=== PATIENT | female | born 1970 ===

== ENCOUNTER → 2017-03-15 | Outpatient (CLI) | payer BC ==
[~2017-03-15] MED LIST: FRRS300 PO; MTR600X PO; OXYC-643 PO; PRENTAB26 PO
== END | disposition home or self-care (01) ==
LOC: C.PAPS 14:10
PROVIDERS: ATTEND Obstetrics & Gynecology
DX: Z01.419 Encounter for gynecological examination (general) (routine) without abnormal findings (principal)

== ENCOUNTER → 2017-03-20 | Outpatient (CLI) | payer BC ==
--- NOTE | 2017-03-21 14:18 | MAMMOGRAPHY REPORT ---
BILATERAL DIGITAL SCREENING MAMMOGRAM TOMOSYNTHESIS WITH CAD: 03/20/2017 CLINICAL HISTORY: Routine screening. Patient has no complaints. TECHNIQUE: Breast tomosynthesis in addition to standard 2D mammography was performed. Current study was also evaluated with a Computer Aided Detection (CAD) system. COMPARISON: Comparison is made to exam dated: 01/19/2015 mammogram - [facility]. BREAST COMPOSITION: The tissue of both breasts is heterogeneously dense, which may obscure small mas ses. FINDINGS: The parenchymal pattern is unchanged. No developing mass, architectural distortion or clus ter of suspicious microcalcifications is seen in either breast. IMPRESSION: ACR BI-RADS CATEGORY 2: BENIGN There is no mammographic evidence of malignancy. A 1 year screening mammogram is recommended. The pa tient will receive written notification of the results. Approximately 10% of breast cancers are not detected with mammography. A negative mammographic report should not delay biopsy if a clinically suggestive mass is present. Sarah Alexander M.D. ay/:03/20/2017 17:15:52 Behavioral Therapy Coordinator: Camila Malave, [facility] letter sent: Normal 1/2 BI-RADS Code: ACR BI-RADS Category 2: Benign
== END | disposition home or self-care (01) ==
LOC: C.MAMM 10:11
PROVIDERS: ATTEND Obstetrics & Gynecology
DX: Z12.31 Encounter for screening mammogram for malignant neoplasm of breast (principal)

== ENCOUNTER → 2017-07-11 | Outpatient (CLI) | payer OTHER ==
[~2017-07-11] MED LIST changes: +INSHNI INJ; +OXYC-57 PO
== END | disposition home or self-care (01) ==
LOC: C.LABSPEC 15:38
PROVIDERS: ATTEND Obstetrics & Gynecology
DX: O09.521 Supervision of elderly multigravida, first trimester (principal)

== ENCOUNTER → 2017-07-17 | Outpatient (CLI) | payer OTHER ==
[~2017-07-17] MED LIST changes: -INSHNI INJ; -OXYC-57 PO
== END | disposition home or self-care (01) ==
LOC: C.LABSPEC 13:52
PROVIDERS: ATTEND Obstetrics & Gynecology
DX: O09.521 Supervision of elderly multigravida, first trimester (principal); Z3A.00 Weeks of gestation of pregnancy not specified

== ENCOUNTER → 2018-01-24 | Outpatient (CLI) | payer OTHER | END | disposition home or self-care (01) | LOC: C.LABSPEC 13:41 | PROVIDERS: ATTEND Obstetrics & Gynecology | DX: O24.414 Gestational diabetes mellitus in pregnancy, insulin controlled (principal); Z3A.00 Weeks of gestation of pregnancy not specified ==

== ENCOUNTER → 2018-02-05 | Outpatient (CLI) | payer OTHER | END | disposition home or self-care (01) | LOC: C.PATHSPEC 11:19 | PROVIDERS: ATTEND Internal Medicine | DX: R22.0 Localized swelling, mass and lump, head (principal) ==

== ENCOUNTER 2018-02-21 05:38 | Inpatient (IN) | payer OTHER ==
--- NOTE | 2018-02-20 11:10 | PAT Medication Instructions ---
Service Date Feb 20, 2018. Current Home Medication List Ferrous Sulfate (Iron Supplement *), 325 MG PO DAILY Insulin Human NPH (Humulin N), 40 UNITS INJ HS Multivit/Min/Iron/Fol Ac/Pren ( Vitamin), 1 TAB PO DAILY Medication Instructions For Your Scheduled Surgery - Hold the following medications the morning of surgery: Ferrous Sulfate (Iron Supplement *), 325 MG PO DAILY Multivit/Min/Iron/Fol Ac/Pren ( Vitamin), 1 TAB PO DAILY - Take the following medications as scheduled the night before surgery: Insulin Human NPH (Humulin N), 40 UNITS INJ HS If you have any questions please call us at [phone] or [phone] or [phone]
[2018-02-20 11:50] LABS: BASO % 0.2 %; BASO ABS # 0.02 K/uL (0-0.2); EOS % 0.6 %; EOS ABS # 0.06 K/uL (0-0.5); HEMATOCRIT 33.7 % (37-47); HEMOGLOBIN 11.3 g/dL (12.0-16.0); IG# 0.05 K/uL (0.00-0.02); LYMPH % 23.8 %; MEAN CELL VOLUME 92.3 fL (80-100); MEAN CORPUSCULAR HGB CONC 33.5 g/dl (32-36); MEAN PLATELET VOLUME 10.9 fL (7.4-10.4); MONO % 6.1 %; MONO ABS # 0.59 K/uL (0.11-0.59); NEUT % 68.8 %; NEUT ABS # 6.66 K/uL (1.4-6.5); PLATELET COUNT 144 K/uL (130-400); RED CELL DISTRIBUTION WIDTH CV 14.7 % (11.5-14.5); RED CELL DISTRIBUTION WIDTH SD 49.7 fL (36.4-46.3); WHITE BLOOD COUNT 9.68 K/uL (4.8-10.8)
--- NOTE | 2018-02-20 21:31 | HISTORY & PHYSICAL EXAMINATION ---
DATE OF ADMISSION: 02/21/2018 CHIEF COMPLAINT: at 40 weeks who presents for repeat section. HISTORY OF PRESENT ILLNESS: Anny is a 47-year-old [place] female 5, para 2-0-2-2 with an EDC of 02/20/2018 based on a last menstrual period consistent with a first trimester ultrasound who presents for repeat section. The patient's history is significant for 2 prior deliveries. Her first delivery in 06/2010 was a vacuum-assisted vaginal delivery. This delivered a 7 pound 1 ounce baby, was complicated by diet-controlled gestational diabetes. Her second was delivered in 12/2012, this is a 39 and 6/7th weeks. This was a section to deliver a 9 pound 10 ounce baby. The baby was in transverse unstable lie. The patient had hoped for but unfortunately did not labor and now presents for repeat section. This was a welcome surprise . She has advanced maternal age, had a consult via [facility], had a normal amnio with a normal AFP. This has also been complicated by insulin controlled gestational diabetes. She has had growth ultrasounds every 4 weeks. The last ultrasound was done on 02/14/2018 revealing a fluid level of 11. Her last growth ultrasound was done on 01/24/2018 revealing an estimated weight greater than 98th percentile and AC greater than 98th percentile. The baby is in cephalic presentation. She has had twice weekly NSTs, which have been reactive. She declined a echo at [facility] for advanced maternal age. She has had an intermittent proteinuria throughout this and was diagnosed with gestational proteinuria with a 24 hour protein of 966. She has had intermittently elevated blood pressures, the highest being 170/80 at 19 weeks, but did not meet criteria for preeclampsia. Recent blood pressures have been in the one teens to 130s/80s, dipping trace protein. PAST COLLEGE INTERN HISTORY: As noted above. Additionally, she has had a spontaneous miscarriage in 07/1996 and a spontaneous miscarriage in 05/2015. This was a chemical . She has had a history of a LEEP in 2008 for BRIAN 2. She denies history of sexually transmitted illnesses. ALLERGIES: No known drug allergies. MEDICATIONS: Includes Humulin insulin, iron, and a vitamin. PAST MEDICAL HISTORY: Significant for previous gestational diabetes, but she is otherwise healthy without thyroid disease, asthma, heart disease, heart murmur, kidney or liver problems. SURGICAL HISTORY: Includes a LEEP in 2008, D and E, and . SOCIAL HISTORY: The patient denies tobacco, alcohol or drugs. Lives with her spouse and 2 children. FAMILY HISTORY: Noncontributory. PHYSICAL EXAMINATION: GENERAL: This is a well-developed, well-nourished female, in no acute distress. VITAL SIGNS: Blood pressure is 118/80, weight is 192.38 pounds. ABDOMEN: Soft, gravid, and nontender. EXTREMITIES: Showed trace edema but are otherwise benign. LABORATORY DATA: Blood type O positive, antibody negative, rubella immune, RPR nonreactive, hepatitis B negative, HIV negative, chlamydia and gonorrhea cultures negative. Hemoglobin electrophoresis normal. GBS negative. ASSESSMENT: Anny is a 5, para 2-0-0-2, at 40-1/7 weeks who presents for repeat section after failing to go into labor. The risks of the procedure were discussed with the patient including risks of anesthesia, bleeding requiring transfusion, infection, poor wound healing, damage to surrounding structures including bowel, bladder, vessels, nerves and ureters with need for further surgery, hospitalization or intervention. We discussed the risk of heart attack, blood clot, stroke or associated with any surgery. Consent was reviewed and signed and surgery is planned for 02/21/2018. KAMALJIT
[2018-02-21] VITALS (11 sets, daily range): BP systolic 121–154; BP diastolic 76–92; PULSE 73–82; TEMP 36.4–36.9; O2SAT 96–100; Ht 162.6 cm; Wt 83.7 kg
[~2018-02-21] VITALS: Ht 162.6 cm; Wt 83.7 kg
[~2018-02-21 05:38] MED LIST changes: +INSHNI INJ; -MTR600X PO; -OXYC-643 PO
[2018-02-21] MEDS ORDERED: LACTATED RINGER'S 1000ML 1,000 ML IV ONE (05:48)
[2018-02-21] MEDS ORDERED: CITRIC ACID/SODIUM CITRATE 15 ML UDC PO ONE (06:00)
[2018-02-21] MEDS ORDERED: CEFAZOLIN IV 2,000 MG in SYRINGE 0 ML IV STA (06:11)
[2018-02-21 06:18] LABS: BASO % 0.2 %; BASO ABS # 0.02 K/uL (0-0.2); EOS % 0.5 %; EOS ABS # 0.05 K/uL (0-0.5); HEMATOCRIT 31.6 % (37-47); HEMOGLOBIN 10.9 g/dL (12.0-16.0); IG# 0.07 K/uL (0.00-0.02); LYMPH % 23.7 %; MEAN CELL VOLUME 92.4 fL (80-100); MEAN CORPUSCULAR HEMOGLOBIN 31.9 pg (25-34); MEAN CORPUSCULAR HGB CONC 34.5 g/dl (32-36); MEAN PLATELET VOLUME 10.6 fL (7.4-10.4); MONO % 5.5 %; MONO ABS # 0.56 K/uL (0.11-0.59); NEUT % 69.4 %; NEUT ABS # 7.02 K/uL (1.4-6.5); PLATELET COUNT 138 K/uL (130-400); RED CELL DISTRIBUTION WIDTH CV 14.7 % (11.5-14.5); RED CELL DISTRIBUTION WIDTH SD 49.9 fL (36.4-46.3); WHITE BLOOD COUNT 10.12 K/uL (4.8-10.8)
[2018-02-21] MEDS ORDERED: MoRPHine SULFATE PF 1 MG/ML 10 ML AMP/VIAL ONE (07:05)
[2018-02-21] MEDS ORDERED: OXYTOCIN INJ 10 UNITS/ML VIAL ONE (07:05)
[2018-02-21] MEDS ORDERED: FENTANYL CITRATE INJ 50 MCG/1 ML 2 ML VIAL ONE (07:05)
[2018-02-21] MEDS ORDERED: EpHEDrine SULFATE INJ 50 MG/ML AMP IV PRN ×2 (07:15→09:00)
[2018-02-21] MEDS ORDERED: ONDANSETRON INJ 2 MG/ML 2 ML VIAL IV PRN ×2 (07:15→09:00)
[2018-02-21] MEDS ORDERED: ATROPINE SULFATE 0.1 MG/ML 5ML SYR IV PRN (07:15)
[2018-02-21] MEDS ORDERED: FENTANYL CITRATE INJ 50 MCG/1 ML 2 ML VIAL IV PRN (07:15)
[2018-02-21] MEDS ORDERED: PHENYLEPHRINE 100MCG/ML 5ML SYR ONE (07:48)
[2018-02-21] MEDS ORDERED: CARBOPROST TROMETHAMINE 250 MCG/ML AMP ONE (07:58)
[2018-02-21] MEDS ORDERED: CARBOPROST TROMETHAMINE 250 MCG/ML AMP IM ONE (08:16)
[2018-02-21] MEDS ORDERED: LACTATED RINGER'S 1000ML 500 ML IV PRN (08:49)
[2018-02-21] MEDS ORDERED: NALOXONE HCL INJ 0.08 MG in SYRINGE 1.8 ML IV PRN (08:49)
[2018-02-21] MEDS ORDERED: NALOXONE HCL INJ 1 MG in SODIUM CHLORIDE 0.9% 1000ML 1,000 ML IV PRN (08:49)
[2018-02-21] MEDS ORDERED: SODIUM CHLORIDE 0.9% 1000ML 1,000 ML IV PRN (08:49)
[2018-02-21] MEDS ORDERED: MoRPHine SULFATE PF 1 MG/ML 10 ML AMP/VIAL EPI PRN (09:00)
[2018-02-21] MEDS ORDERED: DC INTRASPINAL MORPHINE SCH (09:00)
[2018-02-21] MEDS ORDERED: MEPERIDINE HCL 25 MG/ML CARP IV PRN (09:00)
[2018-02-21] MEDS ORDERED: NO NARCOTICS OR SEDATIVES SCH (09:00)
[2018-02-21] MEDS ORDERED: NALOXONE HCL 0.4 MG/1 ML VIAL/CARP IV PRN (09:00)
[2018-02-21] MEDS ORDERED: DiphenhydrAMINE HCL 50 MG/ML VIAL IV PRN (09:00)
[2018-02-21] MEDS ORDERED: NALBUPHINE HCL INJ 10 MG/ML 1ML AMP IV PRN (09:00)
[2018-02-21] MEDS ORDERED: LACTATED RINGER'S 1000ML 1,000 ML IV SCH (09:46)
--- NOTE | 2018-02-21 09:46 | [facility] Post Operative Brief Note ---
Immediate Operative Summary Operative Date Feb 21, 2018. Pre-Operative Diagnosis Intrauterine at term, desires repeat caesarean section Post-Operative Diagnosis same Procedure(s) Performed low transverse uterine caesarean section delivery for live female at [address] Raven Beranbe Field Underwriter Surgeon(s) Dr. Martin Estimated Blood Loss 600 CC Findings Consistent with Post-Op Diagnosis Fluids (cc crystalloids) 2500CC Specimens placenta cord blood Drains MAGDALENO Anesthesia Type Spinal Complication(s) none Disposition Accompanied Pt To Recover: no Disposition: L&D
[2018-02-21] MEDS ORDERED: DC PCA PRN (10:00)
[2018-02-21] MEDS ORDERED: DIPHTHERIA/TETANUS/PERTUSSIS 0.5 ML SYR/VIAL IM. ONE (10:00)
[2018-02-21] MEDS ORDERED: LANOLIN OINT EXT PRN (10:00)
[2018-02-21] MEDS ORDERED: HYDROCORTISONE ACETATE 25 MG SUPP PR PRN (10:00)
[2018-02-21] MEDS: OXYTOCIN INJ 20 UNITS in LACTATED RINGER'S 1000ML 1,000 ML IV SCH ×2 (11:09→19:54)
--- NOTE | 2018-02-21 13:00 | Anesthesiology Progress Note ---
Anesthesia Post Op Note Date & Time Feb 21, 2018 at 13:00 Vital Signs Pain Intensity: 0.0 Vital Signs Past 12 Hours Date Time Temp Pulse Resp B/P (MAP) Pulse Ox O2 Delivery O2 Flow Rate FiO2 02/21/18 11:15 16 98 02/21/18 11:15 98 Room Air 02/21/18 11:15 36.4 79 16 137/89 (105) 98 Room Air 02/21/18 11:15 98 Room Air Notes Mental Status: alert / awake / arousable, participated in evaluation Pt Amnestic to Procedure: Yes Nausea / Vomiting: adequately controlled Pain: adequately controlled Airway Patency, RR, SpO2: stable & adequate BP & HR: stable & adequate Hydration State: stable & adequate Neuraxial Anesthesia: was administered, sensory block resolved Anesthetic Complications: no major complications apparent
--- NOTE | 2018-02-21 13:21 | Discharge Instructions ---
Discharge Instructions Date of Service Feb 21, 2018. Admission Reason for Admission: History Of Section Discharge Discharge Diagnosis / Problem: Discharge Goals Goal(s): Routine recovery after Medications Continue Dispensed Medications: supercream, dermaplast, tucks Activity Recommendations Activity Limitations: per Instructions/Follow-up section . Instructions / Follow-Up Instructions / Follow-Up ACTIVITY RECOMMENDATIONS: * Gradual return to full activity over the next 2-3 weeks. * No lifting - nothing heavier than baby over the next 2-3 weeks. * Do not engage in vigorous exercise, sexual activity or sports until cleared by your physician. * Do not drive or operate any motorized equipment until cleared by your physician. * You may shower/bathe daily. MEDICATIONS: For discomfort or pain, you may use Acetaminophen (Tylenol), Ibuprofen (Advil), or Naproxen (Aleve) following the package directions. For constipation you may use Colace following the package directions. BREAST CARE: If you are not breast feeding: * Wear a supportive bra 24 hours a day for one to two weeks. * Avoid stimulating your breasts and nipples as much as possible during the first few weeks after delivery. * When taking a shower, have the warm water hit your back, not breasts. * When your breasts feel full, apply ice packs. Usually three to four times a day helps ease the discomfort. * Take a mild pain medication (Tylenol / Motrin) when you are uncomfortable. If breast feeding: * Use breast milk to lubricate nipples. Lansinoh cream may be used for sore nipples. You do not need to remove cream prior to breast feeding. If using a different brand of cream, check the label for directions regarding removal of cream prior to nursing. * Wear a supportive bra. * If having problems with breasts or breast feeding, call a bmw sales consultant or your health care provider. SPECIAL CARE INSTRUCTIONS: When you are discharged from the hospital, it is important for you to follow the instructions listed below: * During the first week at home, you should be able to care for yourself and your baby. In addition, the usual light household activities are encouraged. * Limit your activities to the way you feel. Do not try to clean the house or move furniture. Be sensible. * If you actively engage in sports and have done so up until the time of your delivery, you may resume these activities as soon as you feel able. This may take up to one month or even longer. Use good judgment. * Continue to take your vitamins for at least six weeks after the of your baby. * Your diet need not be limited unless you were on a special diet before your delivery. Breast-feeding mothers need around 2500 calories per day and at least 64-80 ounces of fluid per day (8 to 10 glasses). * You should eat foods from the four major food groups. Crash diets or fad diets are to be avoided. Eating lean meats, fresh fruits and vegetables, low-fat dairy products, high fiber foods and a regular exercise program, will help you get back to your pre- weight without putting your health at risk. * Constipation is sometimes a problem after delivery. Take a mild laxative as needed. If breast feeding, Milk of Magnesia is acceptable to use. You may use a suppository or Fleets enema. * A daily shower or tub bath is suggested. Wash incision daily with warm soapy water and pat dry. It doesn't need to be covered unless drainage is present. * A bloody vaginal discharge will usually continue until around four weeks . A small amount of bleeding may continue for as long as six weeks. Vaginal discharge changes from the bright red bleeding after delivery to pink then brownish and finally yellowish-pink before becoming white and disappearing. * Bleeding may increase with activity. Your first period may come in 4-8 weeks. If you are breast feeding, your period may be delayed even longer. * Drake (sex) can begin whenever both you and your partner feel comfortable and do not have any form of genital infection. It is recommended that you wait at least six weeks for internal and external healing to occur. If you have questions, please talk to your health care practitioner. A condom should be used to prevent infection and . * Foreplay, gentle intercourse and lubrication is very important the first several times to prevent pain. A water-based lubricant such as K-Y jelly or Astroglide may be used. * If you have RH negative blood and your baby is RH positive, you will receive RHOGAM by injection prior to discharge. The nurse will give you a card to keep with you that has the date and place that you received RHOGAM after delivery. * During your care, you had a Rubella screen done to check for the presence of rubella antibodies in your blood. If your test was negative, you will receive a Rubella vaccine prior to discharge. This vaccine may cause a fever, soreness at the injection site and flu-like symptoms. If these symptoms persist, notify your health care practitioner. is not advised for one month after a Rubella vaccine. * Verbalizes understanding of car seat law as reviewed with patient nursing. * Car Seat hand-out given and reviewed with patient by nursing. * Shaken baby information reviewed with patient by nursing. Call you doctor if: * Heavy bleeding (saturating several pads an hour) or passing clots the size of your fist. * A fever >101 degrees F (38.3 degrees C) on two occasions four hours apart and /or chills. * Unusual pain in the pelvic or vaginal areas. * Call the doctor for any increased redness, drainage or swelling around the incision and any pain unrelieved by prescribed pain medication. * "Baby Blues" lasting longer than two weeks. If you have any questions or concerns, call your health care practitioner at . FOLLOW UP VISIT: * Please call the office at to schedule a 6 week examination. It is important you keep this appointment. It is important for you to make arrangements for either yearly or twice yearly check-ups thereafter. Current Hospital Diet Patient's current hospital diet: Clear Liquid Diet Discharge Diet Recommended Diet: Regular OB Diet Procedures Procedures Performed: low transverse uterine caesarean section delivery for live female infant at 0753 Pending Studies Studies pending at discharge: no Medical Emergencies . Who to Call and When: Medical Emergencies: If at any time you feel your situation is an emergency, please call 911 immediately. . Non-Emergent Contact Non-Emergency issues call your: Human Resources Operations Coordinator Call Non-Emergent contact if: temperature is above 100.5 . . "Provider Documentation" section prepared by Alec Zhou. . Resident Tracking Resident Involvement: Resident Care Provided Care Provided: Adult Hospital Medicine
--- NOTE | 2018-02-21 14:27 | OPERATIVE REPORT ---
DATE OF OPERATION: 02/21/2018 PREOPERATIVE DIAGNOSES: 1. Intrauterine at 40-1/7 weeks. 2. History of previous section. 3. Insulin requiring gestational diabetes. 4. Advanced maternal age. 5. Gestational proteinuria. POSTOPERATIVE DIAGNOSES: 1. Intrauterine at 40-1/7 weeks. 2. History of previous section. 3. Insulin requiring gestational diabetes. 4. Advanced maternal age. 5. Gestational proteinuria. PROCEDURE: Repeat lower transverse section. SURGEON: Raven Bernabe MD SUPERVISOR MOLD CONSTRUCTION: Vane Martin DO and Chuck Zhou, PGY-1. ANESTHESIA: Spinal. ESTIMATED BLOOD LOSS: 600 mL. FLUIDS: 2500 mL. URINE OUTPUT: 150 mL of clear yellow urine draining from the bladder at the end of the procedure. INDICATIONS: The patient is a 5, para 2-0-2-2 who has a history of a previous section for rather unstable lie in her previous delivery. She had hoped for a trial of labor, but had not labored and this is her default section date. Her was also complicated by likely poorly-controlled insulin requiring diabetes mellitus with her last ultrasound at 36 weeks revealing all parameters in the greater than 98th percentile. She has gestational proteinuria, but did not have signs and symptoms of preeclampsia and she was advanced maternal age with normal amnio female. FINDINGS: Viable female infant in cephalic presentation. There was thinly green-stained meconium on rupture of membranes. The uterus was enlarged but normal in appearance except for a small fibroid noted except grossly posteriorly. The tubes and ovaries were normal bilaterally. COMPLICATIONS: None. DRAINS: Franco. DISPOSITION: To recovery room in stable condition. DESCRIPTION OF PROCEDURE: The patient was taken to the operating room where she was identified verbally and by bracelet. She was seated on the operating table where spinal anesthetic was placed. She was then placed on the operating table in the supine position with a leftward tilt. A Franco catheter was placed sterilely and she was prepped and draped in normal sterile fashion. Anesthetic was tested and found to be adequate and then a timeout was held, identifying correct patient, procedure, positioning, and preoperative antibiotics. A Pfannenstiel skin incision was made over her previous incision and taken down to the underlying layer of fascia with the knife. Bleeding was attended to with Bovie electrocautery. The fascia was incised in the midline with the knife, taken out laterally with scissors. The superior edge of the fascial incision was grasped, elevated and the underlying layer of rectus muscle was taken off bluntly and with scissors. In a similar fashion, the inferior edge of the fascial incision was grasped, elevated and the underlying layer of rectus muscle was taken off bluntly and with scissors. The muscles were bluntly in the midline. The peritoneum was grasped with snaps x2 and entered sharply with scissors. The slotter operator helper's finger was placed into this incision and there were no adhesions noted, so the incision was taken superiorly and inferiorly with good visualization of the bladder sharply with scissors. The incision was stretched, the bladder blade was placed. The lower uterine segment was quite thin, but intact. A bladder flap was created by grasping the vesicouterine peritoneum with a snap entering with scissors and taken out laterally with scissors. The bladder flap was created digitally and the bladder blade was replaced. Hysterotomy incision was scored with the knife. On entering the amniotic sac, thin green meconium was noted. The incision was stretched then with the slotter operator helper's fingers. The head was then delivered atraumatically by placing an slotter operator helper's hand into the uterus and raising it through the incision. The nose and mouth were suctioned. There was no nuchal cord. The rest of the was then delivered without difficulty. The nose and mouth were again bulb suctioned. The cord was clamped and cut and the was taken over immediately to the pediatricians for drying and attention. Cord blood and segment were obtained. The placenta was manually extracted. There were some trailing membranes that were removed from the uterus with a ring forceps. The uterus was then exteriorized and cleared of clot and debris with moistened laparotomy sponges. The hysterotomy incision was repaired in 2 layers, the first in a running layer of 0 Vicryl, the second in an imbricating layer of 0 Vicryl. Some oozing was attended to with [id number] sutures of 0 Vicryl until hemostasis was assured. The posterior cul-de-sac was irrigated and cleared of clot and debris. The hysterotomy incision was again found to be inspected. Another [id number] suture was needed for hemostasis and hemostasis was assured. The uterus was then reanteriorized. The hysterotomy incision was again inspected and found to be hemostatic. The rectus muscles were reapproximated in the midline with several interrupted sutures of 0 Vicryl. The fascia was then reapproximated starting at the corners and meeting in the midline with 0 Vicryl. The subcuticular tissue was copiously irrigated, found to be hemostatic and the skin was closed with subcuticular stitch of 4-0 Vicryl. All sponge, lap, and needle counts were correct x2. The patient tolerated the procedure well and was taken to recovery room in stable condition. I attest to the content of the Intraoperative Record and any orders documented therein. Any exception s are noted below.
[2018-02-21] MEDS: KETOROLAC TROMETHAMINE 30 MG/ML VIAL IV. PRN ×2 (16:03→21:36)
[2018-02-21] MEDS: SIMETHICONE 80 MG CHEW PO SCH ×2 (17:33→19:54)
[2018-02-21] MEDS: DOCUSATE SODIUM 100 MG CAP PO SCH (19:54)
[2018-02-21] MEDS ORDERED: NURSING VERBAL MED ORDER ONE (21:45)
[2018-02-21] MEDS ORDERED: LACTATED RINGER'S 1000ML 500 ML IV ONE (22:15)
[2018-02-22 00:35] VITALS: O2SAT 98
[2018-02-22 01:20] VITALS: O2SAT 97
[2018-02-22] MEDS ORDERED: KETOROLAC TROMETHAMINE 30 MG/ML VIAL IV. PRN (01:30)
[2018-02-22] MEDS ORDERED: MEPERIDINE HCL 50 MG/ML CARP IV PRN ×2 (01:30)
[2018-02-22] MEDS ORDERED: DiphenhydrAMINE HCL 50 MG/ML VIAL IV PRN (01:30)
[2018-02-22 03:30] VITALS: BP 126/77; PULSE 73; TEMP 36.7; O2SAT 97
--- NOTE | 2018-02-22 06:45 | Progress Note ---
Subjective Feb 22, 2018. Subjective conversation w/ patient, physical exam Ambulation: ambulating normally Voiding: no voiding problems Passing Gas: Yes Diet Tolerance: Clear Liquids Lochia: Moderate (with coughing) Feeding Type: Breast Feeding Pain: 10/16 Comment: patient wanted to know if pain would intensify Review of Systems Constitutional: No fever, No chills, No sweats Respiratory: No cough, No sputum, No wheezing Cardiac: No chest pain, No palpitations Abdomen: No pain, No nausea, No vomiting, No diarrhea Female : No dysuria Objective Vital Signs Date Time Temp Pulse Resp B/P (MAP) Pulse Ox O2 Delivery O2 Flow Rate FiO2 02/22/18 03:30 36.7 73 18 126/77 (93) 97 Room Air 02/22/18 01:20 18 97 02/22/18 00:35 18 98 02/21/18 23:45 36.6 82 18 124/76 (92) 96 Room Air 02/21/18 23:45 18 96 02/21/18 23:45 96 Room Air 02/21/18 21:55 18 99 02/21/18 20:30 18 99 02/21/18 19:40 18 99 02/21/18 19:40 36.9 78 18 121/83 (96) 99 Room Air 02/21/18 18:40 16 98 02/21/18 17:00 18 99 02/21/18 15:55 36.8 76 18 154/92 (112) 99 Room Air 02/21/18 15:55 99 Room Air 02/21/18 15:55 18 99 02/21/18 14:08 73 16 129/81 (97) 98 Room Air 02/21/18 14:08 16 98 02/21/18 13:15 16 97 02/21/18 12:15 36.4 73 16 142/86 (104) 100 Room Air 02/21/18 12:15 16 100 02/21/18 11:15 16 98 02/21/18 11:15 98 Room Air 02/21/18 11:15 36.4 79 16 137/89 (105) 98 Room Air 02/21/18 11:15 98 Room Air Physical Exam General Appearance: WELL-APPEARING, NO APPARENT DISTRESS Respiratory/Chest: chest non-tender, normal breath sounds Cardiovascular: regular rate, rhythm Abdomen: normal bowel sounds Fundus: Firm, Relation to Umbilicus (at level of umbilicus) Extremities: non-tender, no calf tenderness Laboratory Results Last 24 Hours Test 02/21/18 06:59 02/22/18 06:00 Bedside Glucose 84 mg/dl Medications Current Inpatient Medications Medications (Trade) Dose Ordered Sig/Kirstin Route Start Time Stop Time Status Last Admin Dose Admin Oxytocin 20 units/ Lactated Ringer's 1,002 ml @ 125 mls/hr Q8H1M IV 02/21/18 09:46 03/23/18 09:45 02/21/18 19:54 125 MLS/HR Lactated Ringer's 1,000 ml @ 125 mls/hr Q8H IV 02/21/18 09:46 03/23/18 09:45 Ketorolac Tromethamine (Toradol Inj) 30 mg Q6H PRN IV. 02/22/18 01:30 02/27/18 01:29 02/22/18 03:41 30 MG Meperidine HCl (Demerol Inj) 50 mg Q4H PRN IV 02/22/18 01:30 03/08/18 01:29 Meperidine HCl (Demerol Inj) 75 mg Q4H PRN IV 02/22/18 01:30 03/08/18 01:29 Oxycodone/ Acetaminophen (Percocet 5-325mg Tab) 1 tab Q4H PRN PO 02/22/18 01:30 03/08/18 01:29 Oxycodone/ Acetaminophen (Percocet 5-325mg Tab) 2 tab Q4H PRN PO 02/22/18 01:30 03/08/18 01:29 Ibuprofen (Motrin Tab) 600 mg Q4H PRN PO 02/21/18 10:00 03/23/18 09:59 Prenat Multivit/ [place]/Iron/Folic Ac ( Vitamin Tab) 1 tab DAILY PO 02/22/18 08:00 03/24/18 07:59 Docusate Sodium (coLACE CAP) 100 mg BID PO 02/21/18 20:00 03/23/18 19:59 02/21/18 19:54 100 MG Lanolin (Lanolin Oint) PRN PRN EXT 02/21/18 10:00 03/23/18 09:59 Hydrocortisone Acetate (Anusol Hc Supp) 25 mg BID PRN OH 02/21/18 10:00 03/23/18 09:59 Simethicone (Mylicon Chew Tab) 80 mg QID PO 02/21/18 12:00 03/23/18 12:59 02/21/18 19:54 80 MG Diphenhydramine HCl (Benadryl Cap) 25 mg QID PRN PO 02/22/18 01:30 03/24/18 01:29 Diphenhydramine HCl (Benadryl Inj) 25 mg QID PRN IV 02/22/18 01:30 03/24/18 01:29 Assessment and Plan Post-Op Day#: 1 Continue Routine Care: 47 yo hx Insulin Controlled GDM POD1 s/p -AFVSS, Pt doing well resting comfortably -CBC HGB 11.0 from 10.9 pre-op, no si/sx of anemia -Plan is to breast feed -Now tolerating clear diet, no more n/v -had some N/V yesterday s/p has since resolved -advised that should she have further episodes to hug a pillow to her abdomen during anything that increase intraabdominal/intrathoracic pressure -Continue to encourage ambulation -Routine Post care Resident Physician Supervision Note: I interviewed and examined the patient. Discussed with Dr. Zhou and agree with findings and plan as documented in the note. Any exceptions or clarifications are listed here: Doing well. Routine care. Incision c/d/i. Fundus firm and appropriately tender. Documented By: Raven Bernabe Resident Tracking Resident Involvement: Resident Care Provided Care Provided: Adult Hospital Medicine
[2018-02-22 06:52] LABS: BASO % 0.2 %; BASO ABS # 0.02 K/uL (0-0.2); EOS % 0.2 %; EOS ABS # 0.03 K/uL (0-0.5); HEMATOCRIT 32.3 % (37-47); IG# 0.05 K/uL (0.00-0.02); LYMPH % 15.4 %; LYMPH ABS # 1.85 K/uL (1.2-3.4); MEAN CELL VOLUME 92.6 fL (80-100); MEAN CORPUSCULAR HEMOGLOBIN 31.5 pg (25-34); MEAN CORPUSCULAR HGB CONC 34.1 g/dl (32-36); MONO % 6.1 %; MONO ABS # 0.73 K/uL (0.11-0.59); NEUT % 77.7 %; NEUT ABS # 9.33 K/uL (1.4-6.5); PLATELET COUNT 136 K/uL (130-400); RED CELL DISTRIBUTION WIDTH CV 14.7 % (11.5-14.5); RED CELL DISTRIBUTION WIDTH SD 49.3 fL (36.4-46.3); WHITE BLOOD COUNT 12.01 K/uL (4.8-10.8)
[2018-02-22] MEDS: DOCUSATE SODIUM 100 MG CAP PO SCH ×2 (07:51→19:58)
[2018-02-22] MEDS: SIMETHICONE 80 MG CHEW PO SCH ×4 (07:51→19:58)
[2018-02-22] MEDS: PRENATAL VITAMIN TAB PO SCH (07:51)
[2018-02-22] MEDS: IBUPROFEN 600 MG TAB PO PRN ×3 (07:52→19:51)
[2018-02-22] MEDS: OXYCODONE/ACETAMINOPHEN 5-325 TAB PO PRN ×4 (07:52→19:52)
[2018-02-22 08:00] VITALS: BP 134/80; PULSE 83; TEMP 36.6; O2SAT 96
[2018-02-22 12:00] VITALS: BP 152/93; PULSE 80; TEMP 37.3; O2SAT 97
[2018-02-22 15:35] VITALS: BP 139/86; PULSE 71; TEMP 36.5; O2SAT 98
[2018-02-23] MEDS: IBUPROFEN 600 MG TAB PO PRN ×6 (00:08→21:42)
[2018-02-23] MEDS: OXYCODONE/ACETAMINOPHEN 5-325 TAB PO PRN ×6 (00:09→21:41)
[2018-02-23 00:25] VITALS: BP 150/89; PULSE 72; TEMP 36.6; O2SAT 98
[2018-02-23 06:39] LABS: HEMATOCRIT 32.6 % (37-47); HEMOGLOBIN 10.9 g/dL (12.0-16.0)
--- NOTE | 2018-02-23 07:31 | Progress Note ---
Subjective Feb 23, 2018. Subjective Voiding: no voiding problems Comment: conversation w/ patient, physical exam Ambulation: ambulating normally Voiding: no voiding problems Passing Gas: Yes Diet Tolerance: Clear Liquids Lochia: Moderate (with coughing) Feeding Type: Breast Feeding Pain: 4/10 Comment: patient had questions about umbilical hernia and reported sore rib cage Review of Systems Constitutional: No fever, No chills, No sweats Respiratory: No cough, No sputum, No wheezing Cardiac: No chest pain, No palpitations Abdomen: No pain, No nausea, No vomiting, No diarrhea Female : No dysuria Objective Vital Signs Date Time Temp Pulse Resp B/P (MAP) Pulse Ox O2 Delivery O2 Flow Rate FiO2 02/23/18 00:25 98 Room Air 02/23/18 00:25 36.6 72 18 150/89 (109) 98 Room Air 02/22/18 15:35 98 Room Air 02/22/18 15:35 36.5 71 18 139/86 (103) 98 Room Air 02/22/18 12:00 37.3 80 18 152/93 (112) 97 Room Air 02/22/18 08:00 36.6 83 18 134/80 (98) 96 Room Air 02/22/18 07:45 Room Air Physical Exam General Appearance: WELL-APPEARING, NO APPARENT DISTRESS Respiratory/Chest: chest non-tender, normal breath sounds Cardiovascular: regular rate, rhythm Abdomen: normal bowel sounds Fundus: Firm, Relation to Umbilicus (at the level of) Incision Description: Clean, Dry & Intact Extremities: non-tender, no calf tenderness Laboratory Results Last 24 Hours Test 02/23/18 05:44 Hemoglobin 10.9 g/dL Hematocrit 32.6 % Medications Current Inpatient Medications Medications (Trade) Dose Ordered Sig/Kirstin Route Start Time Stop Time Status Last Admin Dose Admin Oxytocin 20 units/ Lactated Ringer's 1,002 ml @ 125 mls/hr Q8H1M IV 02/21/18 09:46 03/23/18 09:45 02/21/18 19:54 125 MLS/HR Lactated Ringer's 1,000 ml @ 125 mls/hr Q8H IV 02/21/18 09:46 03/23/18 09:45 Ketorolac Tromethamine (Toradol Inj) 30 mg Q6H PRN IV. 02/22/18 01:30 02/27/18 01:29 02/22/18 03:41 30 MG Meperidine HCl (Demerol Inj) 50 mg Q4H PRN IV 02/22/18 01:30 03/08/18 01:29 Meperidine HCl (Demerol Inj) 75 mg Q4H PRN IV 02/22/18 01:30 03/08/18 01:29 Oxycodone/ Acetaminophen (Percocet 5-325mg Tab) 1 tab Q4H PRN PO 02/22/18 01:30 03/08/18 01:29 02/22/18 19:52 1 TAB Oxycodone/ Acetaminophen (Percocet 5-325mg Tab) 2 tab Q4H PRN PO 02/22/18 01:30 03/08/18 01:29 02/23/18 05:36 2 TAB Ibuprofen (Motrin Tab) 600 mg Q4H PRN PO 02/21/18 10:00 03/23/18 09:59 02/23/18 05:36 600 MG Prenat Multivit/ [place]/Iron/Folic Ac ( Vitamin Tab) 1 tab DAILY PO 02/22/18 08:00 03/24/18 07:59 02/22/18 07:51 1 TAB Docusate Sodium (coLACE CAP) 100 mg BID PO 02/21/18 20:00 03/23/18 19:59 02/22/18 19:58 100 MG Lanolin (Lanolin Oint) PRN PRN EXT 02/21/18 10:00 03/23/18 09:59 Hydrocortisone Acetate (Anusol Hc Supp) 25 mg BID PRN SD 02/21/18 10:00 03/23/18 09:59 Simethicone (Mylicon Chew Tab) 80 mg QID PO 02/21/18 12:00 03/23/18 12:59 02/22/18 19:58 80 MG Diphenhydramine HCl (Benadryl Cap) 25 mg QID PRN PO 02/22/18 01:30 03/24/18 01:29 Diphenhydramine HCl (Benadryl Inj) 25 mg QID PRN IV 02/22/18 01:30 03/24/18 01:29 Assessment and Plan Post-Op Day#: 2 Continue Routine Care: Resident Physician Supervision Note: I interviewed and examined the patient. Discussed with Dr. Zhou and agree with findings and plan as documented in the note. Any exceptions or clarifications are listed here: [None] Documented By: Marine Lowe Jodie 47 yo hx Insulin Controlled GDM POD1 s/p -AFVSS, Pt doing well resting comfortably -CBC HGB 10.9 from 10.9 pre-op, no si/sx of anemia -Plan is to breast feed -Now tolerating clear diet, no more n/v -advised that should she have further episodes of n/vto hug a pillow to her abdomen during anything that increase intraabdominal/intrathoracic pressure -Continue to encourage ambulation -Routine Post care Resident Tracking Resident Involvement: Resident Care Provided Care Provided: Adult Hospital Medicine
[2018-02-23 07:40] VITALS: BP 148/92; PULSE 81; TEMP 36.8
[2018-02-23] MEDS ORDERED: MTR600X PO (08:02)
[2018-02-23] MEDS ORDERED: OXYC-57 PO (08:02)
[2018-02-23] MEDS: PRENATAL VITAMIN TAB PO SCH (08:06)
[2018-02-23] MEDS: DOCUSATE SODIUM 100 MG CAP PO SCH ×2 (08:06→20:03)
[2018-02-23] MEDS: SIMETHICONE 80 MG CHEW PO SCH ×4 (08:06→20:03)
[2018-02-23 12:25] VITALS: BP 167/84
[2018-02-23 16:40] VITALS: BP 121/79; PULSE 84; TEMP 36.9; O2SAT 97
[2018-02-23 23:05] VITALS: BP 153/90; PULSE 74; TEMP 36.7; O2SAT 97
[2018-02-24] MEDS: IBUPROFEN 600 MG TAB PO PRN ×2 (03:33→08:20)
[2018-02-24] MEDS: OXYCODONE/ACETAMINOPHEN 5-325 TAB PO PRN ×2 (03:34→08:21)
[2018-02-24 07:25] VITALS: BP 153/95; PULSE 75; TEMP 36.7; O2SAT 98
--- NOTE | 2018-02-24 08:16 | Progress Note ---
Subjective Feb 24, 2018. Subjective conversation w/ patient (concerns about incicion and possible umbilical hernia) , physical exam Ambulation: ambulating normally Voiding: no voiding problems Feeding Type: Breast Feeding Objective Vital Signs Date Time Temp Pulse Resp B/P (MAP) Pulse Ox O2 Delivery O2 Flow Rate FiO2 02/24/18 07:25 36.7 75 20 153/95 (114) 98 Room Air 02/24/18 07:25 Room Air 02/23/18 23:05 97 Room Air 02/23/18 23:05 36.7 74 18 153/90 (111) Room Air 02/23/18 16:40 36.9 84 18 121/79 (93) 97 Room Air 02/23/18 12:25 167/84 (111) Physical Exam General Appearance: WELL-APPEARING, NO APPARENT DISTRESS Abdomen: normal bowel sounds Fundus: Firm, Non-Tender Incision Description: Clean, Dry & Intact, Ecchymosis (sub-umbilical ecchymosis consistent with post-op) Extremities: no calf tenderness Assessment and Plan Post-Op Day#: 3 Continue Routine Care: - BP has been elevated PP - some diastolics in the 90's - pt concerned about umbilical bruising, re-assured - no evidence of large umbilical hernia - pt desires d/c - instructions/Rx - patient will f/u in 1 week for BP check in office
[2018-02-24] MEDS: DOCUSATE SODIUM 100 MG CAP PO SCH (08:19)
[2018-02-24] MEDS: SIMETHICONE 80 MG CHEW PO SCH (08:20)
[2018-02-24] MEDS: PRENATAL VITAMIN TAB PO SCH (08:20)
[2018-02-24 11:33] VITALS: BP_DIAS 95; PULSE 75; TEMP 36.7
== END 2018-02-24 11:35 | disposition home or self-care (01) | DRG 766 ==
LOC: C.LD 05:38 → EDSTATUS 07:30 → C.OBG 11:18
PROVIDERS: ADMIT Obstetrics & Gynecology; ATTEND Obstetrics & Gynecology
PROC: 10D00Z1 Extraction of Products of Conception, Low, Open Approach (ICD-10-PCS; principal; 2018-02-21 07:30)
DX: O34.211 Maternal care for low transverse scar from previous cesarean delivery (principal); O12.14 Gestational proteinuria, complicating childbirth; O24.424 Gestational diabetes mellitus in childbirth, insulin controlled; O77.0 Labor and delivery complicated by meconium in amniotic fluid; O99.02 Anemia complicating childbirth; O09.523 Supervision of elderly multigravida, third trimester; Z3A.40 40 weeks gestation of pregnancy; Z37.0 Single live birth; Z86.32 Personal history of gestational diabetes; Z87.59 Personal history of other complications of pregnancy, childbirth and the puerperium; Z87.42 Personal history of other diseases of the female genital tract

== ENCOUNTER → 2018-02-28 | Outpatient (CLI) | payer OTHER ==
[~2018-02-28] MED LIST changes: -INSHNI INJ; +MTR600X PO; +OXYC-57 PO
== END | disposition home or self-care (01) ==
LOC: C.LABSPEC 13:27
PROVIDERS: ATTEND Obstetrics & Gynecology
DX: R30.0 Dysuria (principal)

== ENCOUNTER 2020-01-05 05:41 | Observation (INO) ==
--- NOTE | 2019-12-31 10:35 | Anesthesiology Consultation ---
Date of Service December 31, 2019 Assessment & Plan (1) Encounter for pre-operative examination: COVID Status: As of 12/30 nurse assessment, patient denies travel to endemic area, known exposure/sick contacts, or symptoms of COVID19. Preoperative COVID19 testing completed on 12/30, results pending. *h/o PONV* test AM DOS Chart Review Chart Review: Acceptable Risk for Surgery and Patient NOT seen in Pre Admission Testing History Surgery Operation Date: 01/05/20 07:30 Proposed Procedures p Open Ventral Hernia Repair, Possible Mesh - Chito Marlow, DO s Abdominoplasty - Shanice Wood MD Height/Weight Height: 5 ft 3.5 in Weight: 72.575 kg Allergies Allergy/AdvReac Type Severity Reaction Status Date / Time No Known Drug Allergies Allergy Verified 12/31/19 07:36 Medications Home Medications Medication Instructions Recorded Confirmed Last Taken No Known Home Medications 02/06/19 12/31/19 Unknown Past Medical History Medical History Anemia Back pain lumbar Essential hypertriglyceridemia (Acute) Fetus or affected by transverse lie during labor and delivery (Inactive 01/01/13) s/p C/s Hx gestational diabetes Hyperglycemia (Acute) Hypertension started during 2018> no meds Nausea and vomiting after administration of anesthetic agent just nausea with C sections Pre-diabetes diet control Tongue mass (Acute) since removed Past Family History Family History Father Myocardial infarction Diabetes Hypertension Mother Gallbladder cancer Diabetes Hypertension Denies family history of Ovarian cancer Prostate cancer Crohn's disease Breast cancer Lung cancer Colorectal cancer Stroke Past Surgical History Surgical History History of tooth extraction wisdom teeth and molar S/P section x2 Social History Smoking Status: Never smoker Do You Dip or Chew Tobacco: No Hx Alcohol Use: Yes Alcohol type: wine alcohol intake frequency: a few times a month Hx Substance Use: No substance use type: does not use Testing Laboratory Results 12/31/19 08:25 12/31/19 08:25 PT 10.4 Seconds (9.0-12.0) 12/31/19 08:25 INR 1.0 (0.9-1.1) 12/31/19 08:25 APTT 29.1 Seconds (21.0-31.0) 12/31/19 08:25
[2019-12-31 11:05] LABS: Basophils # (auto) 0.03 K/uL (0-0.2); Basophils % (auto) 0.4 %; Eosinophils # (auto) 0.11 K/uL (0-0.5); Eosinophils % (auto) 1.5 %; Hematocrit (blood only) 41.2 % (37-47); Hemoglobin 13.5 g/dL (12.0-16.0); Immature Granulocytes # (auto) 0.01 K/uL (0.00-0.02); Immature Granulocytes % (auto) 0.1 %; Lymphocytes % (auto) 43.7 %; Mean Corpuscular Hemoglobin 29.7 pg (25-34); Mean Corpuscular Hgb Conc 32.8 g/dL (32-36); Mean Corpuscular Volume 90.7 fL (80-100); Mean Platelet Volume 10.6 fL (7.4-10.4); Monocytes # (auto) 0.33 K/uL (0.11-0.59); Monocytes % (auto) 4.4 %; Neutrophils # (auto) 3.77 K/uL (1.4-6.5); Neutrophils % (auto) 49.9 %; Platelet Count 229 K/uL (130-400); RDW Coefficient of Variation 13.1 % (11.5-14.5); RDW Standard Deviation 43.3 fL (36.4-46.3); Red Blood Count 4.54 M/uL (4.2-5.4); White Blood Count 7.55 K/uL (4.8-10.8)
[2019-12-31 11:13] LABS: Partial Thromboplastin Time 29.1 Seconds (21.0-31.0); Prothrombin Time 10.4 Seconds (9.0-12.0)
[2019-12-31 11:19] LABS: BUN Creatinine Ratio 37.9 (10-20); Creatinine Clr Calc Pharmacy 118.6 ml/min; Est GFR (African American) 127.8; Est GFR (Non-African American) 110.3; Potassium 4.1 mmol/L (3.5-5.1)
[2020-01-05] MEDS ORDERED: LR 15ML/HR IV SCH (06:00)
[2020-01-05] MEDS ORDERED: CEFAZOLIN 2000MG 2,000 MG/15 ML SYR IV SCH (06:00)
[2020-01-05] MEDS ORDERED: MIDAZOLAM HCL 1 MG/ML 2ML VIAL ONE (06:45)
[2020-01-05] MEDS ORDERED: fentaNYL citrate 100 MCG/2 ML VIAL ONE ×2 (06:45→11:41)
[2020-01-05] MEDS ORDERED: PROPOFOL IV EMULSION 10 MG/ML 20 ML VIAL IV ONE ×2 (06:45→11:50)
[2020-01-05] MEDS ORDERED: ROCURONIUM BROMIDE 10 MG/ML 5 ML VIAL IV ONE (06:45)
[2020-01-05] MEDS ORDERED: LIDOCAINE HCL 2% 2 ML VIAL/AMP(20MG/ML) INFIL ONE (06:45)
[2020-01-05] MEDS ORDERED: DEXAMETHASONE SOD INJ 4 MG/ML VIAL ONE (06:45)
[2020-01-05] MEDS ORDERED: ONDANSETRON INJ 2 MG/ML 2 ML VIAL ONE ×3 (06:45→11:32)
[2020-01-05] MEDS ORDERED: ACETAMINOPHEN 1000 MG/100 ML IV IV ONE (06:55)
--- NOTE | 2020-01-05 06:59 | History & Physical Bridge Note ---
Date of Service January 05, 2020 History & Physical Bridge Note I have examined the patient, reviewed the History & Physical and in the interval since the performance of the History & Physical I have noted the following changes of clinical significance: no changes noted COVID-19 test negative
[2020-01-05] MEDS ORDERED: SCOPOLAMINE 1.5 MG TDSY TD ONE (07:13)
[2020-01-05] MEDS ORDERED: EPINEPHrine INJ 1 MG/ML AMP ONE (07:14)
[2020-01-05] MEDS ORDERED: LIDOCAINE HCL 1% 20 ML VIAL ONE ×2 (07:14→07:35)
[2020-01-05] MEDS ORDERED: LIDOCAINE/EPINEPHRINE 1% 20 ML VIAL ONE (07:14)
[2020-01-05] MEDS ORDERED: BUPIVACAINE 0.25% 30 ML VIAL ONE (07:15)
[2020-01-05] MEDS ORDERED: ePHEDrine sulfate 50 MG/ML AMP IV PRN (07:20)
[2020-01-05] MEDS ORDERED: ATROPINE SULFATE 0.1 MG/ML 10ML SYR IV PRN (07:20)
[2020-01-05] MEDS ORDERED: ONDANSETRON INJ 2 MG/ML 2 ML VIAL IV PRN ×2 (07:20→13:56)
[2020-01-05] MEDS ORDERED: SODIUM CHLORIDE 0.9% INJ 10 ML VIAL ONE (08:02)
[2020-01-05] MEDS ORDERED: HYDROmorphone INJ 2 MG/ML SYR/VIAL ONE (08:26)
--- NOTE | 2020-01-05 09:27 | Operative Report ---
PG Post Operative Report Pre & Post Diagnosis Operation Date: 01/05/20 07:30 Pre-Op Diagnosis: Ventral Hernia, ENCOUNTER FOR COSMETIC SURGERY Post-Op Diagnosis: Ventral Hernia, ENCOUNTER FOR COSMETIC SURGERY I identified the patient and participated in the time-out.: Yes Procedure Operation Date: 01/05/20 07:30 Actual Procedures p Open Ventral Hernia Repair(Not Applicable) - Chito Marlow DO s Abdominoplasty - Shanice Wood MD Surgeon Chito Marlow, Director Of Agronomy n/a Estimated Blood Loss 20 Findings Consistent with Post-Op Diagnosis Specimens none Description of Procedure Please see Dr. Shanice Wood's dictation for the primary portion of the procedure. When I was called into the room the patient was already intubated, prepped and a horizontal incision made with an abdominal flap made superiorly to the xiphoid process. There was an incision around the umbilicus as well detaching it from the pannus. This exposed an obvious periumbilical ventral hernia. We discussed our options and in order to prevent necrosis of the umbilicus we made a paramedian incision just lateral to the umbilicus through the anterior fascia using cautery. I then split the muscle and elevated the peritoneum with hemostats and opened it using a Metzenbaum scissor. There was a small bleeding vessel that we controlled using cautery. This allowed me to identify an approximately 1.5 cm fascial defect near the umbilicus. I was able to come through our paramedian incision and grabbed the fascial edges using an Allis clamp and by inverting the umbilicus able to expose the fascial defect from underneath. I used an 0 Ethibond in simple interrupted fashion to primarily close this defect. Once the hernia was closed I decided the risk benefit did not warrant mesh because of infection risks as well as the small size of the hernia defect. I then closed the peritoneum using 3-0 Monocryl in a running fashion. The fascia of the paramedian incision was then closed using 0 PDS in simple interrupted fashion. This entire area would later be imbricated by Dr. Wood as part of her procedure. At this point I left the operating room. Again please see Dr. Wood's dictation for the remainder of the procedure. My total blood loss was approximately 20 cc. I attest to the content of the Intraoperative Record and any orders documented therein. Any exceptions are noted below.
[2020-01-05] MEDS ORDERED: ePHEDrine sulfate 50 MG/ML SYR ONE (09:36)
[2020-01-05] MEDS ORDERED: PHENYLEPHRINE 100MCG/ML 5ML SYR ONE (09:36)
[2020-01-05] MEDS ORDERED: NEOSTIGMINE METHYLSULFATE 5 MG/5 ML SYR ONE (11:32)
[2020-01-05] MEDS ORDERED: GLYCOPYRROLATE 0.2 MG/ML VIAL ONE (11:32)
[2020-01-05] MEDS ORDERED: CEFAZOLIN 250 MG/ML 1 GM VIAL ONE (11:46)
--- NOTE | 2020-01-05 11:49 | Post Operative Brief Note ---
PG Immediate Post Op with CF Date of Surgery January 05, 2020 Pre & Post Diagnosis Operation Date: 01/05/20 07:30 Pre-Op Diagnosis: Ventral Hernia, ENCOUNTER FOR COSMETIC SURGERY Post-Op Diagnosis: Ventral Hernia, ENCOUNTER FOR COSMETIC SURGERY I identified the patient and participated in the time-out.: Yes Procedure Operation Date: 01/05/20 07:30 Actual Procedures p Open Ventral Hernia Repair(Not Applicable) - Chito Marlow DO s Abdominoplasty - Shanice Wood MD Surgeon Shanice Wood MD Full Stack Engineer n/a Estimated Blood Loss 30 (hernia=20 ml abdominoplasty=10ml) Findings Consistent with Post-Op Diagnosis Specimens Specimen Description: no specimen per surgeon Drains George Catheter (16 fr george catheter inserted by Charissa Tiwari without difficulty. Clear yellow urine for return) and Brooks-Mckenzie Drain (15 fr. trocar x 2)
[2020-01-05] MEDS ORDERED: ESMOLOL HCL INJ 10 MG/ML 10ML VIAL IV ONE (12:09)
--- NOTE | 2020-01-05 12:11 | Operative Report ---
PG Post Operative Report Pre & Post Diagnosis Operation Date: 01/05/20 07:30 Pre-Op Diagnosis: Ventral Hernia, ENCOUNTER FOR COSMETIC SURGERY Post-Op Diagnosis: Ventral Hernia, ENCOUNTER FOR COSMETIC SURGERY I identified the patient and participated in the time-out.: Yes Procedure Operation Date: 01/05/20 07:30 Actual Procedures p Open Ventral Hernia Repair(Not Applicable) - Chito Marlow, DO s Abdominoplasty - Shanice Wood MD Surgeon Shanice Wood MD Outside Plant Engineer Corrine Valdes PA-C Estimated Blood Loss 30 (hernia=20 ml abdominoplasty=10ml) Findings Consistent with Post-Op Diagnosis 9 cm diastasis rectus, umbilical hernia Specimens none Drains BREN x2 Anesthesia Type General Complications none Disposition Disposition: Recovery Room Description of Procedure Risks, benefits, and alternatives of the procedure were explained to the patient who agreed and signed consent. She was identified and marked in the preoperative holding area. She was brought to the operating room where she was positioned supine and placed under general anesthesia without incident. Franco catheter was placed. Surgical site was prepped and draped sterilely. A time-out procedure was performed. I reassessed my markings which included a lower horizontal abdominal incision with the midportion 6 cm above the vulvar commissure. Incision was marked bilaterally to the ASIS. I began by injecting 1% lidocaine with epinephrine along the planned incision. The lower abdominal incision was made using a 15- blade scalpel to incise epidermis and superficial dermis followed by electrocautery to incise deep dermis, subcutaneous fat, Matt's fascia down to the abdominal wall. Electrocautery was used to elevate the anterior abdominal skin flap. Dissection was carried up to the level of the umbilicus in the midline. At this point, a 15-blade scalpel was used to circumscribe the umbilicus. A vertical midline incision was then made from the incision to the umbilicus and divided in the midline using electrocautery. The umbilicus was then dissected out using electrocautery down to abdominal wall. The umbilical stalk appeared viable throughout the p rocedure. Dissection continued to the xiphoid process, narrowing the dissection superior to the umbilicus. Dr. Marlow was called to the OR to perform umbilical hernia repair. Please see his separately dictated operative report. Subsequent to his completion of the repair, I began rectus plication, using 0 Prolene [id number] interrupted sutures both superiorly from the umbilicus to the xiphoid process and inferiorly from the umbilicus to the pubic symphysis. Repair was then reinforced using a running 0 Prolene suture. Diastases was noted to be 9 cm at its widest point. The umbilicus remained viable throughout this procedure. 10 mL of 0.25% Marcaine plain were injected into the fascia as well as along the incisions. At this point, the bed was flexed and the mid portion of the superior skin flap was inset above the mons pubis using 2-0 Vicryl suture. Skin flaps were marked for excision. A 15-blade scalpel was used to make these incisions and the incision was deepened through dermis, subcutaneous fat, Matt's fat using electrocautery. 15 [place] Alvaro drains were placed in the wound bed and brought out through a separate stab incision in the mons pubis. The drains were sutured into place using 3-0 nylon. The umbilicus was brought out through an inverted triangular incision in the abdominal wall. Due to the depth of the pole of the umbilicus, this was shortened to facilitate closure. This was performed using a 15-blade scalpel. Wound closure was then begun lateral to medial using 2-0 Vicryl Matt's fascia sutures, 2-0 Vicryl deep dermal sutures, 2-0 PDO running superficial Quill suture, 3-0 Monocryl running subcuticular suture. Umbilicus was brought out through the inverted triangle incision and was sutured into place using 4-0 chromic half buried horizontal mattress sutures. The umbilicus was dressed using Xeroform and the incision was dressed using Dermabond Prineo followed by dry dressings and an abdominal binder. The procedure was tolerated well. The patient was awakened and transferred to recovery in satisfactory condition. Corrine Valdes was present and scrubbed throughout the entire procedure and was instrumental in providing retraction of the pannus and assisting in simultaneous wound closure. I attest to the content of the Intraoperative Record and any orders documented therein. Any exceptions are noted below.
[2020-01-05] MEDS: fentaNYL citrate 100 MCG/2 ML VIAL IV PRN ×4 (12:23→12:48)
[2020-01-05] MEDS: HYDROmorphone INJ 1 MG/ML SYRINGE IV PRN ×4 (12:56→13:14)
--- NOTE | 2020-01-05 13:25 | Anesthesiology Progress Note ---
Date of Service January 05, 2020 Anesthesia Post Procedure Vital Signs Vital Signs: Temp Pulse Pulse Resp BP BP Pulse Ox 01/05/20 13:15 90 12 130/90 96 01/05/20 13:05 85 13 148/86 H 97 01/05/20 12:55 76 12 134/78 96 01/05/20 12:45 66 12 119/87 94 01/05/20 12:35 66 12 144/83 H 97 01/05/20 12:25 94 H 12 144/83 H 98 01/05/20 12:15 36.0 C L 88 15 133/92 99 01/05/20 06:09 36.2 C L 78 20 133/97 100 Pain Intensity Abdomen: Pain Intensity: 4 Transfer of Care Handoff Completed per policy Notes Mental Status: alert / awake / arousable and participated in evaluation Patient Amnestic to Procedure: Yes Nausea / Vomiting: adequately controlled Pain: adequately controlled Airway Patency, RR, SpO2: stable & adequate BP & HR: stable & adequate Hydration State: stable & adequate Anesthetic Complications: no major complications apparent and Pt Satisfied with anesthetic care
[2020-01-05] MEDS ORDERED: ACETAMINOPHEN 325 MG TAB PO PRN (13:56)
[2020-01-05] MEDS ORDERED: LORazepam 0.5 MG TAB PO PRN (13:56)
[2020-01-05] MEDS ORDERED: DiphenhydrAMINE HCL 50 MG/ML VIAL IV PRN (13:56)
[2020-01-05] MEDS ORDERED: MoRPHine SULFATE 4 MG/ML 1 ML CARP\\VIAL IV PRN (13:56)
[2020-01-05] MEDS ORDERED: PROMETHAZINE HCL 12.5 MG in SODIUM CHLORIDE 0.9% 50 ML IV PRN (13:56)
[2020-01-05] MEDS ORDERED: MoRPHine SULFATE 10 MG/ML CARP/VIAL IV PRN (13:56)
[2020-01-05] MEDS ORDERED: OXYCODONE/ACETAMINOPHEN 5mg/325mg TAB PO PRN (13:56)
[2020-01-05] MEDS ORDERED: MoRPHine SULFATE 2 MG/ML CARP IV PRN (13:56)
--- NOTE | 2020-01-05 14:01 | Surgery Progress Note ---
Date of Service January 05, 2020 Assessment & Plan (1) Ventral hernia: (2) S/P abdominoplasty: S/P abdominoplasty with [place] Anaya and ventral hernia repair with Dr. Marlow. Patient will remain in semi-benjamin position overnight. remove george and d/c home in AM Subjective Patient resting, offers no concerns. Physical Exam Physical Exam: abd binder in place, drains with appropriate serosang output Results & Data Vital Signs (Past 12 Hours) Vital Signs Temp Pulse Pulse Resp BP BP Pulse Ox 01/05/20 13:25 36.3 C L 86 12 102/82 98 01/05/20 13:15 90 12 130/90 96 01/05/20 13:05 85 13 148/86 H 97 01/05/20 12:55 76 12 134/78 96 01/05/20 12:45 66 12 119/87 94 01/05/20 12:35 66 12 144/83 H 97 01/05/20 12:25 94 H 12 144/83 H 98 01/05/20 12:15 36.0 C L 88 15 133/92 99 01/05/20 06:09 36.2 C L 78 20 133/97 100 PG Care Time/CCT Total # of Minutes Spent Total Time Spent with Patient: Total time spent is greater than 50% in coordination of care (as documented) at patient's floor/unit and/or counseling patient: Coding Level of Care Code None Diagnoses Ventral hernia K43.9 S/P abdominoplasty Z98.890
[2020-01-05] MEDS: D5W AND 1/2NSS 1,000 ML IV SCH (14:23)
[2020-01-05] MEDS: CEFAZOLIN 2000MG 2,000 MG/15 ML SYR IV SCH ×2 (16:31→23:39)
[2020-01-05] MEDS: OXYCODONE/ACETAMINOPHEN 5mg/325mg TAB PO PRN (23:30)
[2020-01-06] MEDS: D5W AND 1/2NSS 1,000 ML IV SCH (03:42)
[2020-01-06] MEDS: OXYCODONE/ACETAMINOPHEN 5mg/325mg TAB PO PRN ×3 (03:45→11:58)
--- NOTE | 2020-01-06 07:49 | Anesthesiology Progress Note ---
Date of Service January 06, 2020 Anesthesia Post Procedure Vital Signs Vital Signs: Temp Pulse Pulse Pulse Resp BP Pulse Ox 01/06/20 07:08 36.9 C 78 16 118/80 94 01/06/20 03:45 37.2 C 90 16 116/80 94 01/05/20 23:03 37.2 C 89 15 124/81 96 01/05/20 19:22 36.9 C 70 16 134/90 99 01/05/20 16:45 92 H 14 135/89 97 01/05/20 15:44 36.5 C 82 16 119/74 98 01/05/20 15:11 36.6 C 79 16 121/75 98 01/05/20 14:24 95 H 18 113/75 96 01/05/20 13:45 36.7 C 89 16 118/81 96 01/05/20 13:25 36.3 C L 86 12 102/82 98 01/05/20 13:15 90 12 130/90 96 01/05/20 13:05 85 13 148/86 H 97 01/05/20 12:55 76 12 134/78 96 01/05/20 12:45 66 12 119/87 94 01/05/20 12:35 66 12 144/83 H 97 01/05/20 12:25 94 H 12 144/83 H 98 01/05/20 12:15 36.0 C L 88 15 133/92 99 Pain Intensity Abdomen: Pain Intensity: 5 Notes Mental Status: alert / awake / arousable and participated in evaluation Patient Amnestic to Procedure: Yes Nausea / Vomiting: see Notes below Pain: adequately controlled Airway Patency, RR, SpO2: stable & adequate BP & HR: stable & adequate Hydration State: stable & adequate Anesthetic Complications: no major complications apparent and see Notes below (Patient had scopolamine patch for surgery but it didn't work. She complained of being very drowsy and nausous yesterday. She didn't vomit. Zofran effective but didn't last. Patient educated to report this to anesthesia provider next time she needs anesthesia. TIVA may be best option.)
--- NOTE | 2020-01-06 08:51 | Surgery Progress Note ---
Date of Service January 06, 2020 Assessment & Plan (1) S/P abdominoplasty: POD #1- patient is doing well. Immediate post-op nausea has resolved. Pain is well-controlled. She is tolerating a regular diet and voiding on own. She is ok for discharge to home today. BREN drains to remain at discharge. She has follow-up appointment in our office tomorrow at 11:30AM and a follow-up appointment with Dr. Marlow in 2 weeks at Gen Surg office. (2) Ventral hernia: Homero Mccormick is sitting in chair at bedside as I entered room. She reports that she is feeling well. Her pain is well controlled with as needed PO pain medication. Franco removed prior to me entering the room. She reported some immediate post-op nausea, but that has resolved. Physical Exam Physical Exam: On physical exam- abdominal binder in place- pulled back to see surgical dressings. Dressings are clean, dry, intact. She has minimal pain. BREN drains x [address] with appropriate sersang drainage. Results & Data Vital Signs (Past 12 Hours) Vital Signs Temp Pulse Resp BP Pulse Ox 01/06/20 07:08 36.9 C 78 16 118/80 94 01/06/20 03:45 37.2 C 90 16 116/80 94 01/05/20 23:03 37.2 C 89 15 124/81 96 PG Care Time/CCT Total # of Minutes Spent Total Time Spent with Patient: Total time spent is greater than 50% in coordination of care (as documented) at patient's floor/unit and/or counseling patient: Coding Level of Care Code 45286 Subseq Obs Care Lvl 1 Diagnoses S/P abdominoplasty Z98.890 Ventral hernia K43.9
[2020-01-06] MEDS ORDERED: MULTIVITAMIN TAB PO SCH (09:00)
--- NOTE | 2020-01-06 09:07 | Surgery Progress Note ---
Date of Service January 06, 2020 Assessment & Plan (1) Ventral hernia: doing well pod 1 ok for d/c today f/u in 1-2 weeks instructions given. Subjective pt seen. having some expected pain but overall doing well. OOB currently eating breakfast. no n/v. Physical Exam Physical Exam: alert. nad sitting in chair/dressings intact. Results & Data Vital Signs (Past 12 Hours) Vital Signs Temp Pulse Resp BP Pulse Ox 01/06/20 08:54 36.9 C 78 16 118/80 94 01/06/20 07:08 36.9 C 78 16 118/80 94 01/06/20 03:45 37.2 C 90 16 116/80 94 01/05/20 23:03 37.2 C 89 15 124/81 96 PG Care Time/CCT Total # of Minutes Spent Total Time Spent with Patient: Total time spent is greater than 50% in coordination of care (as documented) at patient's floor/unit and/or counseling patient: Coding Level of Care Code None Diagnoses Ventral hernia K43.9
--- NOTE | 2020-01-06 13:43 | Discharge Summary ---
Date of Service January 06, 2020 Admission HPI Per Admitting Provider Please see admission H & P. Admission Exam Per Admitting Provider Please see admission H & P. Principal Diagnosis Ventral Hernia, Encounter for Cosmetic Surgery Discharge Data Allergies Allergy/AdvReac Type Severity Reaction Status Date / Time No Known Drug Allergies Allergy Verified 01/05/20 06:08 Procedures Performed Operation Date: 01/05/20 07:30 Actual Procedures s Open Ventral Hernia Repair(Not Applicable) - Chito Marlow DO p Abdominoplasty - Shanice Wood MD Hospital Course (1) S/P abdominoplasty: Anny is a 49-year-old female. She was taken to the OR and underwent Open Ventral Hernia Repair with Dr. Marlow and Abdominoplasty with Dr. Wood. There were no intraoperative complications. She was taken to recovery and transferred to med/surg for observation. She did have some post-op nausea. On POD #1, she was feeling a bit sore, but was overall doing well. Nausea resolved. Catheter was placed intraoperatively and then removed the morning of POD #1. She was tolerating a regular diet. She was able to ambulate in her room independently. She was voiding on her own. Pain was controlled with PO pain medication. Abdominal binder was in place. I opened binder to view surgical dressings. Dressings were dry, intact. BREN drains x [address] with serosang drainage. Discharge instructions were reviewed with her. She was discharged home with instructions to follow-up in the office in 1 day. All ques tions answered. She will follow-up with Dr. Marlow in the General Surgery office in 2 weeks. (2) Ventral hernia: Total Time Total Time Spent Total Time Spent (In Minutes): 5 Discharge Plan Discharge Items Patient Disposition: Home - Self-Care Reason For Visit: Ventral Hernia, ENCOUNTER FOR COSMETIC SURGERY Discharge Diagnosis: Ventral Hernia, Encounter for Cosmetic Surgery Activity: As commented below Non-emergency contact: Surgeon Call non-emergency contact if: you have any medication questions, your pain is not controlled, your temperature is above 101.5, your wound has increased redness and your wound has increased drainage Follow-up/Referrals: Pro,Sergo Dorsey MD [Primary Care Provider] - Chito Marlow, [Surgeon] - (Please call for follow up within 2 weeks) Diet: Regular Addtl Attending Provider Instructions: ACTIVITY RECOMMENDATIONS: __Normal activities _X_No bending, lifting or straining __No driving _X_Driving allowed when you are off pain medications _X_Walking permitted __You should have help at home for ___ days DRESSINGS: __No dressings required _X_Keep abdominal binder, dressings dry/in place until first office visit __Remove dressings ___ and leave dressings off __Apply ice ___ days __Remove dressings and reapply garment __Apply antibiotic ointment (Bacitracin, Neosporin, etc) to wounds 3-4 times/day for 10 days BATHING: _X_Keep dressings dry _X_Sponge bathing permitted, but keep surgical dressings dry. __Showering permitted _X_No swimming, hot tubs or soaking in a tub MEDICATIONS: Resume previous medications unless instructed otherwise by your surgeon. _X_Do not use aspirin, Motrin, Advil or Ibuprofen as these may promote bleeding. Please use Tylenol. _X_Prescription(s) provided: prescription for post-op pain medication provided at pre-operative visit. Please use as prescribed. OTHER INSTRUCTIONS: _X_Record drain output 2-3 times per day SPECIAL CARE INSTRUCTIONS: * It is normal to have a mild fever after surgery. If your temperature is higher than 101.5 degrees F, please call the office at [phone]. * Constipation is a typical side effect of pain medication. An [id number] stool softener will help relieve this. * Leaking around surgical drains may occur and should not cause concern. Sometimes these drains become clogged. If this happens, remove the bulb and milk the clot out of the tube, then replace the bulb. * Drainage from wounds after liposuction is normal and should be expected. Garments will become soiled. You should protect furniture and bedding. This drainage should mostly subside within 2-3 days. Leave garments in place unless instructed to remove them. * If you have unusual drainage from a wound or are concerned you have an infection or have any questions or concerns, please call the office at [phone]. FOLLOW UP VISIT: If not already scheduled, please call the office, , when you return home after surgery to schedule an appointment to be seen in _1__ days. Pending Studies at Discharge: No Stand-Alone Forms: My [facility], Smoking Cessation Medications and DC Order Prescriptions: New oxycodone-acetaminophen [Percocet] 5-325 mg tablet 1 tab PO Q4H PRN (Reason: pain) 3 Days Qty: 18 RF: 0 No Action No Known Home Medications RF: 0 Discharge Orders: Discharge Order (Routine); Ordered 01/06/20 Ordered By: Pushpa Joseph Admission Data Admit Date/Time: 01/05/20 12:26 Attending Provider: Chito Marlwo Admit Provider: Shanice Wood Primary Care Provider: Sergo Smith Other Providers: Shanice Wood Other Interventions: Discharge Summary Assessment (RN) Last Done: 01/06/20 11:38 DC Date/Time DO NOT enter until pt leaves facility: 01/06/20 12:07 Coding Level of Care Code 25869 OBS Care - Discharge Diagnoses S/P abdominoplasty Z98.890 Ventral hernia K43.9
== END 2020-01-06 12:07 | disposition home or self-care (01) ==
LOC: ASU 05:41 → 3E 05:41